=== PATIENT | female | born 1970 | race Caucasian/White ===

== ENCOUNTER 2018-10-10 14:52 | Emergency (ER) ==
[2018-10-10 14:58] VITALS: BP 174/116; TEMP 98.9; BMI 47.5
[2018-10-10] MEDS: BACTRIM DS 800/160 MG PO STA (15:28)
[2018-10-10] MEDS: TENIVAC IM ONE (15:29)
[2018-10-10] MEDS: DILAUDID 0.5 MG/0.5 ML SYRINGE IM STA (15:31)
--- NOTE | 2018-10-10 15:58 | DI ---
Exam: Two views of the left forearm. Comparison: None available. Reason for exam: Pain. FINDINGS: No acute fracture or malalignment. The cortices appear intact. Mixed density findings ar e seen in the forearm soft tissues. Impression: No acute fracture or malalignment in the left radius or ulna. Soft tissue findings suggest a laceration/trauma.
--- NOTE | 2018-10-10 16:06 | ED.PDOC ---
General ED Provider: Dr. MELLY SEGURA Chief Complaint: Bite Stated Complaint: dog bite left forearm Time Seen by Physician: 15:00 Mode of Arrival: Walk-In Information Source: Patient Exam Limitations: No limitations Primary Care Provider: DEB GUERRIER MD Nursing and Triage Documentation Reviewed and Agree: Yes Does patient meet sepsis criteria?: No If yes, has appropriate treatment been initiated?: No System Inflammatory Response Syndrome: Not Applicable Sepsis Protocol: For patient's 13 years and over: Temp is 96.8 and below OR 101 and greater Pulse >90 BPM Resp >20/minute Acutely Altered Mental Status Are patient's symptoms suggestive of a new infection, such as: -Pneumonia -Skin, Soft Tissue -Endocarditis -UTI -Bone, Joint Infection -Implantable Device -Acute Abdominal Infection -Wound Infection -Meningitis -Blood Stream Catheter Infection -Unknown Review of Systems - Review Of Systems Constitutional: Reports: No symptoms Eyes: Reports: No symptoms Ears, Nose, Mouth, Throat: Reports: No symptoms Respiratory: Reports: No symptoms Cardiac: Reports: No symptoms GI: Reports: No symptoms : Reports: No symptoms Musculoskeletal: Reports: No symptoms Skin: Reports: Bruising (left forearm) Neurological: Reports: No symptoms Endocrine: Reports: No symptoms Hematologic/Lymphatic: Reports: No symptoms All Other Systems: Reviewed and Negative Past Medical History - Past Medical History Previously Healthy: Yes Endocrine: Reports: None Cardiovascular: Reports: None Respiratory: Reports: None Hematological: Reports: None Gastrointestinal: Reports: None Genitourinary: Reports: None Neuro/Psych: Reports: None Musculoskeletal: Reports: None Cancer: Reports: None Last Menstrual Period: 7 YEARS - Surgical History General Surgical History: Reports: None - Family History Family History: Reports: None - Social History Smoking Status: Current every day smoker, Light tobacco smoker Hx Substance Use: No Alcohol Screening: None - Immunizations Tetanus Shot up to Date: No Physical Exam - Physical Exam Appearance: Well-appearing, No pain distress, Well-nourished Eyes: JUAN LUIS, EOMI, Conjunctiva clear ENT: Ears normal, Nose normal, Oropharynx normal Respiratory: Airway patent, Breath sounds clear, Breath sounds equal, Respirations nonlabored Cardiovascular: RRR, Pulses normal, No rub, No murmur GI/: Soft, Nontender, No masses, Bowel sounds normal, No Organomegaly Musculoskeletal: Normal strength, ROM intact, No edema, No calf tenderness Skin: Warm, Dry, Normal color Neurological: Sensation intact, Motor intact, Reflexes intact, Cranial nerves intact, Alert, Oriented Psychiatric: Affect appropriate, Mood appropriate Critical Care Note - Critical Care Note Total Time (mins): 0 Course - Course Orders, Labs, Meds: Orders Category Date Time Status Hydromorphone HCl [Dilaudid 0.5 mg/0.5 ml Syringe] MEDS 10/10/18 15:17 Discontinued 0.5 mg IM ONCE STA Sulfamethoxazole/Trimethoprim [Bactrim Ds 800/160 mg] MEDS 10/10/18 15:18 Discontinued 1 tab PO ONCE STA Tetanus and Diphtheria Tox/Pf [Tenivac] MEDS 10/10/18 15:17 Discontinued 0.5 ml IM .ONCE ONE FOREARM, LEFT 2 VIEWS Stat RADS 10/10/18 15:18 Completed Medications Discontinued Medications Generic Name Dose Route Start Last Admin Trade Name Freq PRN Reason Stop Dose Admin Hydromorphone HCl 0.5 mg 10/10/18 15:17 10/10/18 15:31 Dilaudid 0.5 Mg/0.5 Ml Syringe IM 10/10/18 15:18 0.5 mg ONCE STA Administration Tetanus/Diphtheria Toxoids Adsorbed 0.5 ml 10/10/18 15:17 10/10/18 15:29 Tenivac IM 10/10/18 15:18 0.5 ml .ONCE ONE Administration Trimethoprim/Sulfamethoxazole 1 tab 10/10/18 15:18 10/10/18 15:28 Bactrim Ds 800/160 Mg PO 10/10/18 15:19 1 tab ONCE STA Administration Vital Signs: Temp Pulse Resp BP Pulse Ox 10/10/18 14:53 98.9 F 120 H 20 174/116 H 97 Departure - Departure Time of Disposition: 16:07 Disposition: HOME SELF-CARE Discharge Problem: Dog bite Qualifiers: Encounter type: initial encounter Qualified Code(s): W54.0XXA - Bitten by dog, initial encounter Instructions: Animal Bite (ED) Condition: Good Pt referred to PMD for follow-up: Yes IPMP verified?: No Additional Instructions: Please call your Family Physician as soon as possible to schedule a follow-up appointment. Allergies/Adverse Reactions: Allergies clarithromycin [From Biaxin] Adverse Reaction (Verified 10/10/18 14:58) morphine Adverse Reaction (Verified 10/10/18 14:58) Penicillins Adverse Reaction (Verified 10/10/18 14:58) sumatriptan [From Imitrex] Adverse Reaction (Verified 10/10/18 14:58) Home Medications: Ambulatory Orders Baclofen 10 mg PO BID 10/10/18 Carbidopa/Levodopa [Carbidopa-Levo 25-100 mg Odt] 1 each PO BID 10/10/18 Colestipol HCl [Colestid] 1 gm PO BID 10/10/18 Diclofenac Sodium [Diclofenac Sodium ER] 150 mg PO BID 10/10/18 Fluoxetine HCl [Prozac] 40 mg PO DAILY 10/10/18 Progesterone, Micronized [Progesterone] 200 mg PO DAILY 10/10/18 Propranolol HCl 40 mg PO TID 10/10/18
== END 2018-10-10 16:33 | disposition home or self-care (01) ==
LOC: ED 14:52
DX: S51.852A Open bite of left forearm, initial encounter (principal); W54.0XXA Bitten by dog, initial encounter; F17.210 Nicotine dependence, cigarettes, uncomplicated
CPT/HCPCS: 90471; 90714; 96372; 99283